=== PATIENT | female | born 1960 | race Two or more races ===

== ENCOUNTER 2023-06-30 03:13 | Emergency (ER) | payer SELFPAY ==
[~2023-06-30] VITALS: Ht 182.9 cm; Wt 86.2 kg
[2023-06-30 03:26] VITALS: BP 120/80; TEMP 100; O2SAT 99
[2023-06-30] MEDS ORDERED: IBUP-2715 PO (04:14)
[2023-06-30 19:13] LABS: ABG BASE EXCESS -8.5 mmol/L; ABG OXYGEN SATURATION 97.2 % (92.0-98.5); ABG PCO2 77.4 mmHg (35.0-45.0); ABG PH 7.097 (7.350-7.450); ABG PO2 143.1 mmHg (75.0-100.0); ABG TOTAL HEMOGLOBIN 17.2 G/dL (12.0-16.0); COHb 5.4 % (0.5-1.5); O2Hb 76.4 % (94.0-97.0); SITE, ABG Other; VENT MODE, BG Room Air
== END 2023-06-30 09:23 | disposition home or self-care (01) ==
LOC: ER 03:16
DX: R07.9 Chest pain, unspecified (principal)
CPT/HCPCS: 36415; 36600; 70450-TC; 86850-TC; P9016